=== PATIENT | male | born 1965 | race Caucasian/White ===

== ENCOUNTER 2020-07-24 11:21 | Emergency (ER) | payer OTHER ==
[~2020-07-24] VITALS: Ht 177.8 cm; Wt 83.9 kg
[2020-07-24 11:54] LABS: BASOPHILS ABSOLUTE AUTO 0.03 K/mm3 (0.00-0.23); BASOPHILS PERCENT AUTO 1 % (0-2); EOSINOPHILS ABSOLUTE AUTO 0.05 K/mm3 (0.00-0.68); EOSINOPHILS PERCENT AUTO 1 % (0-6); Hematocrit 45.8 % (37.0-53.0); Hemoglobin 15.3 g/dL (13.5-17.5); IMMATURE GRAN ABSOLUTE AUTO 0.11 K/mm3 (0.00-0.10); IMMATURE GRAN PERCENT AUTO 2 % (0-1); LYMPHOCYTES ABSOLUTE AUTO 0.89 K/mm3 (0.84-5.20); LYMPHOCYTES PERCENT AUTO 19 % (21-46); MONOCYTES ABSOLUTE AUTO 0.56 K/mm3 (0.16-1.47); MONOCYTES PERCENT AUTO 12 % (4-13); Mean Corpuscular HGB 32.8 pg (26.0-34.0); Mean Corpuscular HGB Conc 33.4 g/dL (31.5-36.5); Mean Corpuscular Volume 98 fL (80-100); Mean Platelet Volume 9.8 fL (9.1-12.4); NEUTROPHILS ABSOLUTE AUTO 3.02 K/mm3 (1.96-9.15); NEUTROPHILS PERCENT AUTO 65 % (41-73); Platelet Count 136 K/mm3 (150-400); RDW Coefficient Variation 12.7 % (11.7-14.2); RDW Standard Deviation 45.8 fL (35.1-46.3); Red Blood Cell Count 4.67 M/mm3 (4.30-5.90); White Blood Cell Count 4.66 K/mm3 (4.00-11.30)
[2020-07-24 12:14] LABS: Alanine Aminotransfer (ALT/SGP 261 U/L (12-78); Albumin, Blood 3.9 g/dL (3.4-5.0); Albumin/Globulin Ratio 0.9 (0.8-1.8); Alk Phos 114 U/L (50-136); Anion Gap 18 mmol/L (6-16); Aspartate Aminotrans (AST/SGOT 272 U/L (12-37); Bilirubin, Total 1.8 mg/dL (0.1-1.0); Blood Urea Nitrogen 21 mg/dL (8-24); Bun/Creatinine Ratio 17.9 (12.0-20.0); CO2, Blood 17 mmol/L (21-32); Calcium, Blood 9.1 mg/dL (8.5-10.1); Chloride, Blood 99 mmol/L (98-108); Creatinine, Blood 1.17 mg/dL (0.60-1.20); Globulin, Blood 4.3 g/dL (2.2-4.0); Glomerular Filtration Rate >60 (60-); Glucose, Blood 169 mg/dL (70-99); Potassium, Blood 3.5 mmol/L (3.5-5.5); Sodium, Blood 134 mmol/L (136-145); Total Protein, Blood 8.2 g/dL (6.4-8.2)
[2020-07-24 12:48] LABS: Magnesium, Blood 3.1 mg/dL (1.6-2.4)
[2020-07-24] MEDS ORDERED: CHLO25 PO (13:42)
[2020-07-24] MEDS ORDERED: PROM25 PO (13:42)
[2020-07-24] MEDS ORDERED: CYCL10 PO (13:42)
[2020-07-28 11:42] LABS: Free Thyroxine 1.34 ng/dL (0.70-1.60); Thyroid Stimulating Hormone 1.09 uIU/mL (0.360-4.800); Triiodothyronine, Free 4.12 pg/mL (2.18-3.98)
== END 2020-07-24 14:00 | disposition home or self-care (01) ==
LOC: ER 11:21
PROVIDERS: Emergency Medicine; Family Medicine
DX: F10.139 Alcohol abuse with withdrawal, unspecified (principal); R56.9 Unspecified convulsions
CPT/HCPCS: 80053; 83690; 83735; 84439; 84443; 84481; 85025; 93005; 93010; 99285-25; A9270; J7120

== ENCOUNTER 2022-02-20 08:31 | Emergency (ER) | payer OTHER ==
[~2022-02-20] VITALS: Ht 177.8 cm; Wt 83.9 kg
[~2022-02-20 08:31] MED LIST: CHLO25 PO; CYCL10 PO; PROM25 PO
[2022-02-20] MEDS ORDERED: METO50ER PO (08:57)
[2022-02-20] MEDS ORDERED: DONEPEZIL HCL5 M2 PO (08:57)
[2022-02-20] MEDS ORDERED: OLMESARTAN MEDO20 MG PO (08:58)
[2022-02-20] MEDS ORDERED: DULOXETINE HCL60 M1 PO (08:58)
[2022-02-20] MEDS ORDERED: REMERON30 M8 PO (08:58)
[2022-02-20] MEDS ORDERED: HYDR1TAB94 PO (11:16)
== END 2022-02-20 11:30 | disposition home or self-care (01) ==
LOC: ER 08:31
DX: S51.811A Laceration without foreign body of right forearm, initial encounter (principal); S80.211A Abrasion, right knee, initial encounter; S09.90XA Unspecified injury of head, initial encounter; I10 Essential (primary) hypertension; Z79.899 Other long term (current) drug therapy; V28.4XXA Motorcycle driver injured in noncollision transport accident in traffic accident, initial encounter
CPT/HCPCS: 73030; 73090; A9270

== ENCOUNTER 2022-06-11 12:18 | Emergency (ER) | payer OTHER ==
[~2022-06-11] VITALS: Ht 177.8 cm; Wt 68.0 kg
[~2022-06-11 12:18] MED LIST changes: +CLIN300 PO; +DONEPEZIL HCL5 M2 PO; +DULOXETINE HCL60 M1 PO; +HYDR1TAB94 PO; +METO50ER PO; +OLMESARTAN MEDO20 MG PO; +REMERON30 M8 PO
[2022-06-11 13:47] LABS: BASOPHILS ABSOLUTE AUTO 0.05 K/mm3 (0.00-0.23); BASOPHILS PERCENT AUTO 0 % (0-2); EOSINOPHILS ABSOLUTE AUTO 0.09 K/mm3 (0.00-0.68); EOSINOPHILS PERCENT AUTO 1 % (0-6); Hematocrit 45.9 % (37.0-53.0); Hemoglobin 15.7 g/dL (13.5-17.5); IMMATURE GRAN ABSOLUTE AUTO 0.31 K/mm3 (0.00-0.10); IMMATURE GRAN PERCENT AUTO 2 % (0-1); LYMPHOCYTES ABSOLUTE AUTO 0.61 K/mm3 (0.84-5.20); LYMPHOCYTES PERCENT AUTO 3 % (21-46); MONOCYTES ABSOLUTE AUTO 1.11 K/mm3 (0.16-1.47); MONOCYTES PERCENT AUTO 6 % (4-13); Mean Corpuscular HGB 31.5 pg (26.0-34.0); Mean Corpuscular HGB Conc 34.2 g/dL (31.5-36.5); Mean Corpuscular Volume 92 fL (80-100); Mean Platelet Volume 9.7 fL (9.1-12.4); NEUTROPHILS ABSOLUTE AUTO 15.78 K/mm3 (1.96-9.15); NEUTROPHILS PERCENT AUTO 88 % (41-73); Platelet Count 162 K/mm3 (150-400); RDW Coefficient Variation 12.6 % (11.7-14.2); RDW Standard Deviation 42.1 fL (35.1-46.3); Red Blood Cell Count 4.98 M/mm3 (4.30-5.90); White Blood Cell Count 17.95 K/mm3 (4.00-11.30)
[2022-06-11 14:04] LABS: Albumin, Blood 3.4 g/dL (3.4-5.0); Albumin/Globulin Ratio 0.7 (0.8-1.8); Bilirubin, Total 1.1 mg/dL (0.1-1.0); Bun/Creatinine Ratio 6.6 (12.0-20.0); Calcium, Blood 9.2 mg/dL (8.5-10.1); Creatinine, Blood 1.96 mg/dL (0.60-1.20); Globulin, Blood 4.7 g/dL (2.2-4.0); Potassium, Blood 3.6 mmol/L (3.5-5.5); Total Protein, Blood 8.1 g/dL (6.4-8.2)
[2022-06-11] MEDS ORDERED: ROSU10TA PO (15:53)
[2022-06-11] MEDS ORDERED: LISI5 PO (15:53)
[2022-06-11] MEDS ORDERED: GABA300 PO (15:54)
[2022-06-11] MEDS ORDERED: TRAZ100 PO (15:54)
[2022-06-11] MEDS ORDERED: CEPH500 PO (16:21)
[2022-06-11] MEDS ORDERED: DOXY100 PO (16:21)
== END 2022-06-11 16:51 | disposition home or self-care (01) ==
LOC: ER 12:18
PROVIDERS: Physician Assistant
DX: L03.114 Cellulitis of left upper limb (principal); I10 Essential (primary) hypertension; Z79.899 Other long term (current) drug therapy
CPT/HCPCS: 36415; 73070; 80053; 85025; A9270

== ENCOUNTER 2022-06-19 07:24 | Emergency (ER) | payer OTHER ==
[~2022-06-19] VITALS: Ht 177.8 cm; Wt 86.2 kg
[~2022-06-19 07:24] MED LIST changes: +CEPH500 PO; +DOXY100 PO; +GABA300 PO; +LISI5 PO; +ROSU10TA PO; +TRAZ100 PO
[2022-06-19] MEDS ORDERED: CEPH500 PO (08:36)
[2022-06-19] MEDS ORDERED: DOXY100 PO (08:36)
== END 2022-06-19 08:42 | disposition home or self-care (01) ==
LOC: ER 07:24
DX: S86.912A Strain of unspecified muscle(s) and tendon(s) at lower leg level, left leg, initial encounter (principal); M25.462 Effusion, left knee; L03.114 Cellulitis of left upper limb; I10 Essential (primary) hypertension; W50.0XXA Accidental hit or strike by another person, initial encounter; Z79.899 Other long term (current) drug therapy
CPT/HCPCS: A9270

== ENCOUNTER 2023-12-28 13:56 | Emergency (ER) | payer OTHER ==
[~2023-12-28] VITALS: Ht 177.8 cm; Wt 72.6 kg
[2023-12-28 14:08] VITALS: BP 158/103
[2023-12-28] MEDS ORDERED: Norco 5-325 Ta1 EACH PO (14:14)
== END 2023-12-28 14:16 | disposition home or self-care (01) ==
LOC: ER 13:56
DX: S46.211A Strain of muscle, fascia and tendon of other parts of biceps, right arm, initial encounter (principal); I10 Essential (primary) hypertension; X58.XXXA Exposure to other specified factors, initial encounter; Y99.0 Civilian activity done for income or pay; Z79.899 Other long term (current) drug therapy
CPT/HCPCS: 99282